=== PATIENT | male | born 1985 | race African-American/Black ===

== ENCOUNTER 2023-11-03 20:04 | Emergency (ER) | payer OTHER ==
[~2023-11-03] VITALS: Ht 200.7 cm; Wt 151.0 kg
[2023-11-03] MEDS: IBUPROFEN 600 MG TAB PO STA (21:15)
[2023-11-03] MEDS: ACETAMINOPHEN 325 MG TAB PO ONE (21:15)
[2023-11-03] MEDS ORDERED: CIPRO500 MG PO (22:04)
[2023-11-03 22:13] VITALS: O2SAT 98
== END 2023-11-03 22:21 | disposition home or self-care (01) ==
LOC: FSED 20:46
DX: R50.9 Fever, unspecified (principal); B34.9 Viral infection, unspecified; R31.29 Other microscopic hematuria; E66.9 Obesity, unspecified
CPT/HCPCS: 0223U; 81003; 83518; 87400; 99283

== ENCOUNTER 2024-02-03 20:01 | Emergency (ER) | payer OTHER ==
[~2024-02-03 20:01] MED LIST: CIPRO500 MG PO
== END 2024-02-03 22:00 | disposition short-term general hospital (02) ==
LOC: FSED 21:02
DX: S69.91XA Unspecified injury of right wrist, hand and finger(s), initial encounter (principal)

== ENCOUNTER 2024-03-20 00:03 | Emergency (ER) | payer OTHER ==
[~2024-03-20] VITALS: Ht 200.7 cm; Wt 141.1 kg
[2024-03-20 00:18] VITALS: PULSE 84; RESP 18; TEMP 98
[2024-03-20] MEDS ORDERED: CLEOCIN HCL300 MG PO (00:44)
[2024-03-20] MEDS ORDERED: ULTRAM 50MG50 MG PO (00:44)
[2024-03-20] MEDS: Clindamycin INJ 150 MG/ML 600 MG Vial IM ONE (00:58)
[2024-03-20] MEDS: Morphine 4mg INJECTION 4 MG/ML INJ IV ONE ×2 (01:17→02:29)
[2024-03-20] MEDS: HYDROCODONE/APAP 5MG-325MG TAB PO ONE (05:01)
[2024-03-20] MEDS: SODIUM CHLORIDE 0.9% 100 ML IV ONE (05:04)
[2024-03-20] MEDS: SODIUM CHLORIDE 0.9% 1000ML 1,000 ML IV ONE (05:08)
[2024-03-20 06:04] VITALS: BP 141/95; PULSE 82; RESP 18; TEMP 98.1; O2SAT 98
== END 2024-03-20 06:04 | disposition other institution (70) ==
LOC: FSED 00:18
DX: M79.641 Pain in right hand (principal); T81.49XA Infection following a procedure, other surgical site, initial encounter
CPT/HCPCS: 73120; 85025; 99284; J2270; J7030